=== PATIENT | male | born 1950 | race Caucasian/White ===

== ENCOUNTER 2020-12-24 13:37 | Emergency (ER) | payer MEDICARE, OTHER ==
[~2020-12-24 13:37] MED LIST: ASPIR 8181 MG PO; COREG12.5 MG PO; ELAVIL 50 MG TA50 MG PO; FLOMAX0.4 MG PO; FOLIC ACID1 MG PO; GLUCOPHAGE500 MG PO; LIPITOR80 MG PO; MAGNESIUM OXID420 MG PO; METHOTREXATE2.5 MG PO; NEURONTIN 400400 MG PO; OMEPRAZOLE20 M2 PO; PROSCAR 5 MG TAB5 MG PO; STOOL SOFTENER100 M1 PO; ZESTRIL2.5 MG PO
[2020-12-24] MEDS ORDERED: AUGMENTIN 875-1 EACH PO (15:03)
== END 2020-12-24 15:14 | disposition home or self-care (01) ==
LOC: ER1 13:37
DX: S61.052A Open bite of left thumb without damage to nail, initial encounter (principal); S61.252A Open bite of right middle finger without damage to nail, initial encounter; S61.254A Open bite of right ring finger without damage to nail, initial encounter; I10 Essential (primary) hypertension; E11.9 Type 2 diabetes mellitus without complications; W54.0XXA Bitten by dog, initial encounter; Z23 Encounter for immunization
CPT/HCPCS: 90471; 90715; 99283

== ENCOUNTER 2021-12-31 09:24 | Emergency (ER) | payer OTHER ==
[~2021-12-31 09:24] MED LIST changes: +AUGMENTIN 875-1 EACH PO
[2021-12-31 12:27] LABS: HEMOGLOBIN 11.8 gm/dl (14.0-17.5)
[2021-12-31 12:55] LABS: BUN/CREATININE RATIO 27 (0-10)
== END 2021-12-31 16:28 | disposition home or self-care (01) ==
LOC: ER1 09:24
PROVIDERS: Student in an Organized Health Care Education/Training Program
DX: M54.50 Low back pain, unspecified (principal); E86.0 Dehydration; E11.9 Type 2 diabetes mellitus without complications; I10 Essential (primary) hypertension; Z87.891 Personal history of nicotine dependence; Z88.8 Allergy status to other drugs, medicaments and biological substances; Z20.822 Contact with and (suspected) exposure to COVID-19
CPT/HCPCS: 0240U; 71045; 80048; 82550; 82553; 83605; 84484; 85025; 85379; 85652; 86140; 93005; 99285; Q9967

== ENCOUNTER → 2022-01-16 | Outpatient (CLI) | payer OTHER | LOC: EMI 13:30 | DX: M54.50 Low back pain, unspecified (principal); M48.02 Spinal stenosis, cervical region; G95.20 Unspecified cord compression; M50.21 Other cervical disc displacement, high cervical region | CPT/HCPCS: 72141 ==

== ENCOUNTER → 2022-01-29 | Outpatient (CLI) | payer OTHER | LOC: HEART 5 07:50 | DX: I25.119 Atherosclerotic heart disease of native coronary artery with unspecified angina pectoris (principal); I08.3 Combined rheumatic disorders of mitral, aortic and tricuspid valves; R94.39 Abnormal result of other cardiovascular function study | CPT/HCPCS: 78452; 93306; A9502; J2785 ==

== ENCOUNTER → 2022-02-14 | Outpatient (CLI) | payer OTHER ==
[~2022-02-14] MED LIST changes: +GABAPENTIN400 MG PO; +METHOTREXATE T2.5 MG PO; -METHOTREXATE2.5 MG PO
== END ==
LOC: CT 02-08 08:30
DX: M50.03 Cervical disc disorder with myelopathy, cervicothoracic region (principal); M51.36 Other intervertebral disc degeneration, lumbar region; M50.321 Other cervical disc degeneration at C4-C5 level; M48.02 Spinal stenosis, cervical region; M47.12 Other spondylosis with myelopathy, cervical region
CPT/HCPCS: 70498; 72125; Q9967

== ENCOUNTER → 2022-02-19 | Outpatient (CLI) | payer OTHER ==
[~2022-02-19] MED LIST changes: +HYDROXYCHLOROQ200 MG PO; +ISOSORBIDE MONO30 MG PO; +ZINC50 M3 PO
[2022-02-19 12:33] LABS: BUN/CREATININE RATIO 30 (0-10)
== END ==
LOC: LAB 11:09
PROVIDERS: Orthopaedic Surgery
DX: Z01.812 Encounter for preprocedural laboratory examination (principal); M54.12 Radiculopathy, cervical region
CPT/HCPCS: 36415; 80048; 85610; 85730; 86850; 86900; 86901

== ENCOUNTER 2022-02-20 05:38 | Inpatient (IN) | payer OTHER ==
[~2022-02-20] VITALS: Ht 175.3 cm; Wt 72.6 kg
[~2022-02-20 05:38] MED LIST changes: -FLOMAX0.4 MG PO; -GABAPENTIN400 MG PO; -HYDROXYCHLOROQ200 MG PO; -ISOSORBIDE MONO30 MG PO; -ZINC50 M3 PO
[2022-02-20] MEDS ORDERED: ISOSORBIDE MONO30 MG PO (06:07)
[2022-02-20 16:28] LABS: RED BLOOD COUNT 3.45 M/UL (4.20-5.50); WHITE BLOOD COUNT 14.4 K/UL (4.5-11.0)
[2022-02-20 16:54] LABS: BUN/CREATININE RATIO 25 (0-10)
[2022-02-21 05:12] LABS: RED BLOOD COUNT 3.44 M/UL (4.20-5.50)
[2022-02-21 05:32] LABS: WHITE BLOOD COUNT 18.6 K/UL (4.5-11.0)
[2022-02-21 05:35] LABS: BUN/CREATININE RATIO 18 (0-10)
[2022-02-21] MEDS ORDERED: FLOMAX0.4 MG PO (07:14)
[2022-02-21] MEDS ORDERED: GABAPENTIN400 MG PO (12:06)
[2022-02-21] MEDS ORDERED: HYDROXYCHLOROQ200 MG PO (12:23)
[2022-02-21] MEDS ORDERED: ZINC50 M3 PO (12:25)
[2022-02-22 05:05] LABS: HEMOGLOBIN 9.8 gm/dl (14.0-17.5); RED BLOOD COUNT 3.39 M/UL (4.20-5.50); WHITE BLOOD COUNT 17.5 K/UL (4.5-11.0)
[2022-02-22 05:29] LABS: BUN/CREATININE RATIO 15 (0-10)
[2022-02-23 05:16] LABS: HEMOGLOBIN 10.3 gm/dl (14.0-17.5); RED BLOOD COUNT 3.5 M/UL (4.20-5.50); WHITE BLOOD COUNT 15.7 K/UL (4.5-11.0)
[2022-02-23 05:48] LABS: BUN/CREATININE RATIO 12 (0-10)
--- NOTE | 2022-02-23 14:00 | NUR ---
ATTEMPT TO ASSIST PT TO CHAIR, PT STATES HE CANNOT STAND THE PRESSURE OF THE NECK BRACE AND SITTING "HURTS TOO MUCH". PT SAT AT BEDSIDE APPROX 30 SECONDS
[2022-02-24 06:45] LABS: HEMOGLOBIN 9.8 gm/dl (14.0-17.5); RED BLOOD COUNT 3.37 M/UL (4.20-5.50); WHITE BLOOD COUNT 12.1 K/UL (4.5-11.0)
[2022-02-24 07:19] LABS: BUN/CREATININE RATIO 13 (0-10)
[2022-02-25 06:00] LABS: HEMOGLOBIN 9.5 gm/dl (14.0-17.5); RED BLOOD COUNT 3.26 M/UL (4.20-5.50); WHITE BLOOD COUNT 12.6 K/UL (4.5-11.0)
[2022-02-25 06:30] LABS: BUN/CREATININE RATIO 14 (0-10)
[2022-02-25] MEDS ORDERED: OXYCODONE HCL5 M1 PO (12:21)
[2022-02-25] MEDS ORDERED: CYCLOBENZAPRINE10 MG PO (12:22)
[2022-02-25] MEDS ORDERED: LISINOPRIL10 MG PO (14:44)
== END 2022-02-25 15:45 | disposition home health service (06) | DRG 460 ==
LOC: OR 05:38 → CCU 17:20
PROVIDERS: ADMIT Orthopaedic Surgery
PROC: 0RG407J Fusion of Cervicothoracic Vertebral Joint with Autologous Tissue Substitute, Posterior Approach, Anterior Column, Open Approach (ICD-10-PCS; 2022-02-20)
PROC: 01N10ZZ Release Cervical Nerve, Open Approach (ICD-10-PCS; 2022-02-20)
PROC: 01N80ZZ Release Thoracic Nerve, Open Approach (ICD-10-PCS; 2022-02-20)
PROC: 4A11X4G Monitoring of Peripheral Nervous Electrical Activity, Intraoperative, External Approach (ICD-10-PCS; 2022-02-20)
PROC: 0RG207J Fusion of 2 or more Cervical Vertebral Joints with Autologous Tissue Substitute, Posterior Approach, Anterior Column, Open Approach (ICD-10-PCS; principal; 2022-02-20 07:30)
PROC: 0RG707J Fusion of 2 to 7 Thoracic Vertebral Joints with Autologous Tissue Substitute, Posterior Approach, Anterior Column, Open Approach (ICD-10-PCS; 2022-02-20 07:30)
DX: M48.02 Spinal stenosis, cervical region (principal); M47.12 Other spondylosis with myelopathy, cervical region; G95.89 Other specified diseases of spinal cord; I10 Essential (primary) hypertension; K21.9 Gastro-esophageal reflux disease without esophagitis; E78.5 Hyperlipidemia, unspecified; I25.10 Atherosclerotic heart disease of native coronary artery without angina pectoris; N40.0 Benign prostatic hyperplasia without lower urinary tract symptoms; E11.40 Type 2 diabetes mellitus with diabetic neuropathy, unspecified; Z96.611 Presence of right artificial shoulder joint; M06.9 Rheumatoid arthritis, unspecified; D50.9 Iron deficiency anemia, unspecified; M19.90 Unspecified osteoarthritis, unspecified site; Z85.72 Personal history of non-Hodgkin lymphomas; Z80.8 Family history of malignant neoplasm of other organs or systems; Z80.6 Family history of leukemia; Z98.890 Other specified postprocedural states; Z79.82 Long term (current) use of aspirin; Z79.899 Other long term (current) drug therapy; Z79.84 Long term (current) use of oral hypoglycemic drugs; Z90.89 Acquired absence of other organs; Z87.891 Personal history of nicotine dependence
CPT/HCPCS: 36415; 72040; 72050; 76000; 80048; 82962; 83540; 83550; 85027; 97116; 97116-GP-CQ; 97161; 97166; 97530-GP-CQ; 97535; C1713; C1762; J0690; J1100; J1170; J1756; J2250; J2405; J2704; J3010; J3370; J7030; J7040; J7120; J8610

== ENCOUNTER 2022-03-04 08:11 | Emergency (ER) | payer OTHER ==
[~2022-03-04 08:11] MED LIST changes: +CYCLOBENZAPRINE10 MG PO; +FLOMAX0.4 MG PO; +GABAPENTIN400 MG PO; +HYDROXYCHLOROQ200 MG PO; +ISOSORBIDE MONO30 MG PO; +LISINOPRIL10 MG PO; +OXYCODONE HCL5 M1 PO; +ZINC50 M3 PO
[2022-03-04 09:40] LABS: HEMOGLOBIN 10.9 gm/dl (14.0-17.5); RED BLOOD COUNT 3.75 M/UL (4.20-5.50); WHITE BLOOD COUNT 13.8 K/UL (4.5-11.0)
[2022-03-04 10:40] LABS: BUN/CREATININE RATIO 23 (0-10)
[2022-03-04] MEDS ORDERED: ENDOCET 5-3251 EACH PO (10:49)
[2022-03-04] MEDS ORDERED: CYCLOBENZAPRINE10 MG PO (11:19)
== END 2022-03-04 11:51 | disposition home or self-care (01) ==
LOC: ER1 08:11
PROVIDERS: Physician Assistant
DX: G89.18 Other acute postprocedural pain (principal); M54.2 Cervicalgia; I10 Essential (primary) hypertension; E11.9 Type 2 diabetes mellitus without complications; Z79.84 Long term (current) use of oral hypoglycemic drugs
CPT/HCPCS: 72125; 80053; 85025; 85652; 86140; 87040; 96374; 96376; 99284; J1170; J7030

== ENCOUNTER 2022-03-13 07:26 | Emergency (ER) | payer OTHER ==
[~2022-03-13 07:26] MED LIST changes: +ENDOCET 5-3251 EACH PO
[2022-03-13] MEDS ORDERED: PERCOCET 10-321 EACH PO (08:34)
== END 2022-03-13 09:23 | disposition home or self-care (01) ==
LOC: ER1 07:26
DX: G89.18 Other acute postprocedural pain (principal); M54.2 Cervicalgia; E11.9 Type 2 diabetes mellitus without complications; I10 Essential (primary) hypertension
CPT/HCPCS: 96372; 99283; J1170

== ENCOUNTER 2022-03-30 13:04 | Emergency (ER) | payer OTHER ==
[~2022-03-30 13:04] MED LIST changes: +PERCOCET 10-321 EACH PO
[2022-03-30 13:40] LABS: HEMOGLOBIN 11.7 gm/dl (14.0-17.5); RED BLOOD COUNT 4.02 M/UL (4.20-5.50); WHITE BLOOD COUNT 10.9 K/UL (4.5-11.0)
[2022-03-30 14:06] LABS: BUN/CREATININE RATIO 27 (0-10)
== END 2022-03-30 17:30 | disposition home or self-care (01) ==
LOC: ER1 13:04
PROVIDERS: Family Medicine
DX: I95.1 Orthostatic hypotension (principal); E86.0 Dehydration; J98.11 Atelectasis; I10 Essential (primary) hypertension
CPT/HCPCS: 71045; 80053; 81001; 82550; 82553; 84439; 84443; 84484; 85025; 93005; 99285

== ENCOUNTER → 2022-05-01 | Day surgery (SDC) | payer MEDICARE ==
[~2022-05-01] MED LIST changes: +FLONASE ALLER15.8 ML
== END | disposition home or self-care (01) ==
LOC: OR 06:42
DX: Z12.11 Encounter for screening for malignant neoplasm of colon (principal); K31.9 Disease of stomach and duodenum, unspecified; D12.3 Benign neoplasm of transverse colon; K29.60 Other gastritis without bleeding; R63.4 Abnormal weight loss; I25.10 Atherosclerotic heart disease of native coronary artery without angina pectoris; I10 Essential (primary) hypertension; E11.9 Type 2 diabetes mellitus without complications; K21.9 Gastro-esophageal reflux disease without esophagitis; M06.9 Rheumatoid arthritis, unspecified; Z68.27 Body mass index [BMI] 27.0-27.9, adult; Z86.010 Personal history of colon polyps; Z98.61 Coronary angioplasty status; Z79.82 Long term (current) use of aspirin; Z87.891 Personal history of nicotine dependence
CPT/HCPCS: J2001; J2704; J3010; J7120

== ENCOUNTER → 2022-07-09 | Outpatient (CLI) | payer MEDICARE | LOC: RAD 09:00 | DX: R13.10 Dysphagia, unspecified (principal); K44.9 Diaphragmatic hernia without obstruction or gangrene | CPT/HCPCS: 74221; 74230; 92611-GN ==